=== PATIENT | male | born 1995 | race Caucasian/White ===

== ENCOUNTER 2021-07-30 09:27 | Emergency (ER) | payer OTHER ==
[2021-07-30] MEDS ORDERED: CEPHALEXIN500 MG PO (10:46)
[2021-07-30] MEDS ORDERED: TRIAMCINOLONE 080 GM TOP (10:46)
== END 2021-07-30 12:33 | disposition home or self-care (01) ==
LOC: FER 09:27
DX: S80.862A Insect bite (nonvenomous), left lower leg, initial encounter (principal); S80.861A Insect bite (nonvenomous), right lower leg, initial encounter; L03.116 Cellulitis of left lower limb; L03.115 Cellulitis of right lower limb; F17.210 Nicotine dependence, cigarettes, uncomplicated; W57.XXXA Bitten or stung by nonvenomous insect and other nonvenomous arthropods, initial encounter
CPT/HCPCS: 99283